=== PATIENT | male | born 1965 | race Caucasian/White ===

== ENCOUNTER 2017-03-28 03:43 | Emergency (ER) | payer SELFPAY ==
[~2017-03-28] VITALS: Ht 180.3 cm; Wt 106.2 kg
--- NOTE | 2017-03-28 03:59 | NUR ---
DR. SULLIVAN AT BEDSIDE FOR MSE.
[2017-03-28] MEDS ORDERED: PRED20TA PO (04:15)
[2017-03-28] MEDS ORDERED: ACET-2154 PO (04:15)
[2017-03-28] MEDS ORDERED: BUDE10.2 IH (04:15)
[2017-03-28] MEDS ORDERED: KETOROLAC TROMETHAMINE 30 MG INJ IVP ONE (04:15)
[2017-03-28] MEDS ORDERED: FLUT9.9S INH (04:15)
[2017-03-28] MEDS ORDERED: MORPHINE SULFATE 2 MG/1 ML DISP.SYRIN IV ONE (04:15)
[2017-03-28] MEDS ORDERED: METOCLOPRAMIDE HCL 10 MG/2 ML VIAL IV ONE (04:15)
[2017-03-28] MEDS ORDERED: ASPI1TAB2 PO (04:15)
[2017-03-28] MEDS ORDERED: AMLO5TAB2 PO (04:15)
[2017-03-28] MEDS ORDERED: LEVO500T90 PO (04:15)
[2017-03-28 04:50] LABS: CREATININE 0.7 mg/dL (0.6-1.3); POTASSIUM 4.1 mmol/L (3.5-5.1)
[2017-03-28 04:56] LABS: BILIRUBIN,DIRECT 0.1 mg/dL (0.0-0.2); BILIRUBIN,TOTAL 0.6 mg/dL (0.2-1.0); TOTAL PROTEIN, SERUM 7.2 g/dL (6.4-8.2)
[2017-03-28] MEDS ORDERED: KETOROLAC TROMETHAMINE 30 MG INJ ONE (04:59)
[2017-03-28] MEDS ORDERED: METOCLOPRAMIDE HCL 10 MG/2 ML VIAL ONE (04:59)
[2017-03-28] MEDS ORDERED: MORPHINE SULFATE 4 MG/1 ML DISP.SYRIN ONE (04:59)
[2017-03-28 05:13] LABS: BASOPHILS % (AUTO) 0.4 % (0.0-2.0); EOSINOPHILS # (AUTO) 0.1 K/uL (0.0-0.7); EOSINOPHILS % (AUTO) 1.1 % (0.0-7.0); HEMATOCRIT 42.8 % (36.7-47.1); HEMOGLOBIN 14.3 g/dL (12.5-16.3); LYMPHOCYTES % (AUTO) 16.4 % (20.5-51.5); MEAN CORPUSCULAR HEMOGLOBIN 29.2 uug (23.8-33.4); MEAN CORPUSCULAR HGB CONC 34 g/dL (32.5-36.3); MEAN CORPUSCULAR VOLUME 87.3 fL (73.0-96.2); MONOCYTES % (AUTO) 8.3 % (0.0-11.0); NEUTROPHILS % (AUTO) 73.8 % (38.5-71.5); PLATELET COUNT (AUTO) 298 K/uL (152-348); WHITE BLOOD COUNT (AUTO) 12.2 K/uL (3.6-10.2)
--- NOTE | 2017-03-28 07:33 | NUR ---
IV removed. Catheter intact and site benign. Pressure and 4x4 gauze applied to site. No bleeding noted.Patient discharged to home in stable conditon. Written and verbal after care instructions given. Patient verbalizes understanding of instructions. Stressed follow up with pmd or return to ER for worsening s/s.
[2017-03-28 07:34] VITALS: BP 137/98
== END 2017-03-28 07:35 | disposition home or self-care (01) ==
LOC: ER 03:46
DX: S06.5X9A Traumatic subdural hemorrhage with loss of consciousness of unspecified duration, initial encounter (principal); G43.909 Migraine, unspecified, not intractable, without status migrainosus; I10 Essential (primary) hypertension; J01.00 Acute maxillary sinusitis, unspecified; E11.9 Type 2 diabetes mellitus without complications; B19.20 Unspecified viral hepatitis C without hepatic coma; J44.1 Chronic obstructive pulmonary disease with (acute) exacerbation; Z79.82 Long term (current) use of aspirin; X58.XXXA Exposure to other specified factors, initial encounter; Y93.89 Activity, other specified; Y92.89 Other specified places as the place of occurrence of the external cause; Y99.8 Other external cause status
CPT/HCPCS: 36415; 70450; 80048; 80076; 83690; 85025; 85730; 96374; 96375; 99285; A4663; J1885; J2270; J2765